=== PATIENT | female | born 1990 | race Caucasian/White ===

== ENCOUNTER 2017-05-18 13:09 | Emergency (ER) | payer MEDICAID ==
[2017-05-18 13:12] VITALS: BP 128/77
== END 2017-05-18 14:05 | disposition left against medical advice (07) ==
LOC: ED 13:09
DX: M25.531 Pain in right wrist (principal); Z53.21 Procedure and treatment not carried out due to patient leaving prior to being seen by health care provider

== ENCOUNTER 2017-05-21 09:03 | Emergency (ER) | payer MEDICAID ==
[~2017-05-21] VITALS: Ht 160 cm; Wt 70.8 kg
[2017-05-21 10:35] VITALS: BP 123/80
== END 2017-05-21 10:35 | disposition home or self-care (01) ==
LOC: ED 09:03
DX: M65.4 Radial styloid tenosynovitis [de Quervain] (principal)
CPT/HCPCS: Q0092

== ENCOUNTER 2018-10-21 11:20 | Emergency (ER) | payer MEDICAID ==
[~2018-10-21] VITALS: Ht 160 cm; Wt 75.3 kg
[2018-10-21 11:39] VITALS: BP 121/82; Ht 160 cm; Wt 75.3 kg
== END 2018-10-21 12:00 | disposition home or self-care (01) ==
LOC: ED 11:20
DX: G44.209 Tension-type headache, unspecified, not intractable (principal); M62.838 Other muscle spasm